=== PATIENT | female | born 1980 | race Caucasian/White ===

== ENCOUNTER 2023-02-01 00:49 | Emergency (ER) | payer OTHER ==
[~2023-02-01] VITALS: Ht 165.1 cm; Wt 55.3 kg
--- NOTE | 2023-02-01 01:12 | NUR ---
PT AMB TO [facility] 4A WITH C/O ABD PAIN 9 WITH URGENCY.
--- NOTE | 2023-02-01 01:36 | NUR ---
at bedside for eval.
[2023-02-01] MEDS ORDERED: OXYCODONE/APAP 5-325 MG TABLET PO ONE (02:00)
[2023-02-01] MEDS ORDERED: OXYCODONE/APAP 5-325 MG TABLET ONE (02:05)
[2023-02-01 02:07] LABS: HEMATOCRIT 39.3 % (31.2-41.9); MEAN CORPUSCULAR HEMOGLOBIN 30.1 uug (24.7-32.8); MEAN CORPUSCULAR VOLUME 88.9 fL (75.5-95.3); PLATELET COUNT (AUTO) 260 K/uL (179-408)
[2023-02-01 02:19] LABS: *BILIRUBIN,URIN NEGATIVE (NEGATIVE); *BLOOD, URINE NEGATIVE (NEGATIVE); *KETONES,URINE 1+ (NEGATIVE); *UROBILINOGEN,URINE 0.2 E.U./dl (NORMAL); LEUKOCYTE ESTERASE ,URINE NEGATIVE (NEGATIVE); NITRITE, URINE NEGATIVE (NEGATIVE); PH,URINE 8.5 (5.0-8.0); UGLUCOSE NEGATIVE (NEGATIVE)
[2023-02-01 02:20] LABS: *CLARITY,URINE CLEAR (CLEAR); *COLOR,URINE YELLOW (YELLOW)
[2023-02-01 02:21] LABS: *URINE HCG, QUAL NEGATIVE (NEGATIVE)
[2023-02-01 02:33] LABS: CREATININE 0.9 mg/dL (0.6-1.3); POTASSIUM 3.7 mmol/L (3.5-5.1)
[2023-02-01] MEDS ORDERED: IOHEXOL 300MG/ML 100 ML INFUS..BTL ONE (02:33)
[2023-02-01] MEDS ORDERED: IV NORMAL SALINE 250 ML IV ONE (02:33)
[2023-02-01] MEDS ORDERED: SWABABLE VALVE TRANSFER SET EA MC ONE (02:33)
[2023-02-01 02:38] LABS: BILIRUBIN,DIRECT 0.1 mg/dL (0.0-0.2); BILIRUBIN,TOTAL 0.3 mg/dL (0.2-1.0); TOTAL PROTEIN, SERUM 8.2 g/dL (6.4-8.2)
[2023-02-01] MEDS ORDERED: MAGNESIUM HYDROXIDE 30 ML LIQUID UDC PO ONE (03:45)
[2023-02-01] MEDS ORDERED: MAGNESIUM HYDROXIDE 30 ML LIQUID UDC ONE (03:54)
--- NOTE | 2023-02-01 04:53 | NUR ---
UTRASOUND DONE AT BEDSIDE.
[2023-02-01] MEDS ORDERED: SULF1TAB48 PO (06:05)
[2023-02-01] MEDS ORDERED: METR250T36 PO (06:05)
--- NOTE | 2023-02-01 06:30 | NUR ---
PT A, A AND O X 4 WITH NO C/O PAIN AND NO N/V. Patient discharged to home in stable condition. Written and verbal after care instructions given. Patient verbalizes understanding of instructions. Stressed follow up or return to ER for worsening s/s.PT AMB OUT WITH STEADY GAIT.
[2023-02-01 07:32] VITALS: BP 113/61
== END 2023-02-01 06:30 | disposition home or self-care (01) ==
LOC: ER 01:04
DX: K63.89 Other specified diseases of intestine (principal); B96.89 Other specified bacterial agents as the cause of diseases classified elsewhere; K59.00 Constipation, unspecified; Z79.899 Other long term (current) drug therapy
CPT/HCPCS: 36415; 76856; 83690; 83735; 84703; 85025; A4663; Q9967